=== PATIENT | female | born 1965 | race African-American/Black ===

== ENCOUNTER 2018-05-26 15:15 | Emergency (ER) | payer BC, OTHER ==
[~2018-05-26] VITALS: Ht 175.3 cm; Wt 83.9 kg
--- NOTE | 2018-05-26 15:30 | NUR ---
PATIENT WAS MSE BY DR ESPINAL IN ROOM 05A.
--- NOTE | 2018-05-26 15:38 | NUR ---
Patient discharged to home in stable conditon. Written and verbal after care instructions given. Patient verbalizes understanding of instructions.
[2018-05-26 15:41] VITALS: BP 151/79
== END 2018-05-26 15:41 | disposition home or self-care (01) ==
LOC: ER 15:15
DX: J06.9 Acute upper respiratory infection, unspecified (principal)
CPT/HCPCS: A4663